=== PATIENT | male | born 2000 | race Hispanic/Latino ===

== ENCOUNTER 2022-05-04 21:04 | Emergency (ER) | payer SELFPAY ==
[2022-05-04] MEDS ORDERED: Ketorolac Tromethamine 30 MG/ML VIAL ONE (23:09)
== END 2022-05-04 23:37 | disposition home or self-care (01) ==
LOC: ERS 21:04
DX: J06.9 Acute upper respiratory infection, unspecified (principal); R07.89 Other chest pain
CPT/HCPCS: 71045; 93005; 96372; J1885